=== PATIENT | female | born 1985 | race African-American/Black ===

== ENCOUNTER 2018-06-28 15:50 | Emergency (ER) | payer MEDICAID ==
[~2018-06-28] VITALS: Ht 167.6 cm; Wt 95.3 kg
[~2018-06-28 15:50] MED LIST: ALBUTEROL2.5 MG/3 M INH; PROMETHAZI6.25 MG/1 ORAL; VENTOLIN HFA18 GM INH
[2018-06-28] MEDS ORDERED: NKM (16:01)
--- NOTE | 2018-06-28 16:16 | NUR ---
ED Nurse Note: Pt walked in from home due to bilateral earache x 3-4 days, feel moist inside but no discharge. No complaint of ALONZO, dizziness. AOx4, VSS. Will cont to monitor.
[2018-06-28] MEDS ORDERED: Ketorolac 30mg Inj IV ONE (16:30)
--- NOTE | 2018-06-28 16:58 | Emergency Room Report ---
History of Present Illness General Chief Complaint: Earache Source: Patient Present Illness HPI 33-year-old female presents to the emergency department complaining of 8 out of 10 in severity pain to both sides of the face just in front of both ears 2 days. Patient denies fevers or chills. Pt. reports right side pain is more than the left. She denies fevers, chills, ST, or recent dental procedures. Allergies: Coded Allergies: No Known Allergies (Unverified , 01/07/18) Patient History Past Medical History: see triage record Past Surgical History: none Pertinent Family History: none Last Menstrual Period: 05/19/2018 Now: No Reviewed Nursing Documentation: PMH: Agreed; PSxH: Agreed Nursing Documentation-PMH Past Medical History: No History, Except For Hx Asthma: Yes Physical Exam Vital Signs Date Time Temp Pulse Resp B/P (MAP) Pulse Ox O2 Delivery O2 Flow Rate FiO2 06/28/18 15:58 98.6 92 14 155/83 95 Room Air Medical Decision Making PA Attestation Dr. Gonzalez is my supervising Physician whom patient management has been discussed with. Diagnostic Impression: Primary Impression: Trigeminal neuralgia pain Additional Impression: Temporomandibular joint (TMJ) pain Qualified Codes: M26.621 - Arthralgia of right temporomandibular joint ER Course Pt. presents to the ED c/O [ ] Ddx considered but are not limited to Tooth Avulsion, tooth fracture, maxilla or jaw fracture, lacerations, dental abscess, orbital cellulitis, d/l tooth, dental pain. Vital signs: are WNL, pt. is afebrile H&PE are most consistent with dental injury from trauma. ORDERS: none required at this time, the diagnosis is clinical ED INTERVENTIONS: None required at this time. DISCHARGE: At this time pt. is stable for d/c to home. Will provide printed patient care instructions, and any necessary prescriptions. Care plan and follow up instructions have been discussed with the patient prior to discharge. Last Vital Signs Date Time Temp Pulse Resp B/P (MAP) Pulse Ox O2 Delivery O2 Flow Rate FiO2 06/28/18 15:58 98.6 92 14 155/83 95 Room Air Disposition: HOME, SELF-CARE Condition: Stable Scripts Naproxen* (NAPROXEN*) 500 Mg Tablet 500 MG ORAL TWICE A DAY for 7 Days, #14 TAB Prov: Maria Luz Jones 06/28/18 Carbamazepine (CARBAMAZEPINE) 100 Mg Cpmp.12hr 100 MG ORAL TWICE A DAY for 7 Days, #14 CAP Prov: Maria Luz Jones 06/28/18 Patient Instructions: Trigeminal Neuralgia Additional Instructions: Take medications as directed. Follow up with a Dentist or [facility]-Facial Specialist in 3-5 days, even if your symptoms have resolved. --Please review list of Dental clinics, if you do not already have a Dentist Return sooner to ED if new symptoms occur, or current symptoms become worse. - Please note that this Emergency Department Report was dictated using [employer] agent technology software, occasionally this can lead to erroneous entry secondary to interpretation by the dictation equipment. Maria Luz Jones Jun 28, 2018 16:58
[2018-06-28] MEDS ORDERED: NAPROXEN500 M2 ORAL (17:00)
[2018-06-28] MEDS ORDERED: CARBAMAZEPINE100 M1 ORAL (17:00)
[2018-06-28 17:01] VITALS: BP 141/78
[2018-06-28 17:08] VITALS: BP 141/78
--- NOTE | 2018-06-28 17:08 | NUR ---
ED Nurse Note: Pt is clear to be discharged by ERMD. Discharge paper and prescription given, pt verbalized understanding of discharge instruction. AOx4, VSS. Wristband removed. Pt ambulated out with steady gait with all belongings.
== END 2018-06-28 17:00 | disposition home or self-care (01) ==
LOC: EMR 15:56
DX: G50.0 Trigeminal neuralgia (principal); M26.601 Right temporomandibular joint disorder, unspecified; J45.909 Unspecified asthma, uncomplicated
CPT/HCPCS: 96374; 99284; J1885

== ENCOUNTER 2018-11-05 11:13 | Emergency (ER) | payer MEDICAID ==
[~2018-11-05] VITALS: Ht 167.6 cm; Wt 97.5 kg
[~2018-11-05 11:13] MED LIST changes: +CARBAMAZEPINE100 M1 ORAL; +NAPROXEN500 M2 ORAL; +NKM
[2018-11-05 11:16] VITALS: BP 155/86
[2018-11-05] MEDS ORDERED: IBUPROFEN600 MG ORAL (11:56)
--- NOTE | 2018-11-05 11:57 | Diagnostic Imaging Report ---
INDICATION: Knee Pain COMPARISON: None 3 views of the left knee were obtained. FINDINGS: No acute fracture, malalignment, or joint effusion are identified. Joint space is relatively well-maintained. Impression: Negative for acute injury
--- NOTE | 2018-11-05 12:04 | NUR ---
ED Nurse Note: almost fell last monday but heard a popping sound on the L knee
--- NOTE | 2018-11-05 12:06 | NUR ---
ER DISCHARGE NOTE: Patient is cleared to be discharged per ERMD, pt is aox4, on room air, with stable vital signs. pt was given dc and prescription instructions, pt was able to verbalize understanding, pt id band REMOVED. pt is able to ambulate with steady gait. pt took all belongings.
--- NOTE | 2018-11-05 14:08 | Emergency Room Report ---
History of Present Illness General Chief Complaint: Lower Extremity Injury Source: Patient Present Illness HPI Patient presents with complaints of left knee pain Reports that she had an injury several days ago falling backwards she felt her knee buckled she has had increased pain since then the left side She is ambulatory reports that she took some pain medicine and was elevating it felt that the swelling in her leg had improved however the discomfort in the left knee continued also felt a popping sound initially with the initial injury Allergies: Coded Allergies: No Known Allergies (Unverified , 01/07/18) Patient History Past Medical History: see triage record Pertinent Family History: none Now: No Reviewed Nursing Documentation: PMH: Agreed; PSxH: Agreed Nursing Documentation-PMH Hx Asthma: Yes Review of Systems All Other Systems: negative except mentioned in HPI Physical Exam Vital Signs Date Time Temp Pulse Resp B/P (MAP) Pulse Ox O2 Delivery O2 Flow Rate FiO2 11/05/18 11:16 97.5 86 22 155/86 (109) 97 Room Air Sp02 EP Interpretation: reviewed, normal General Appearance: well appearing, no apparent distress Head: normocephalic, atraumatic Eyes: bilateral eye PERRL, bilateral eye EOMI ENT: normal pharynx Neck: supple Respiratory: no respiratory distress, no retraction Cardiovascular #1: regular rate, rhythm Musculoskeletal: other - Some discomfort palpable to the lower patellar area, negative anterior posterior drawer test no obvious effusion Neurologic: alert, oriented x3, responsive Skin: normal color, no rash Lymphatic: no adenopathy Medical Decision Making Diagnostic Impression: Primary Impression: knee pain ER Course Given the history exam and presentation multiple differential including but not limited to musculoskeletal, ligamental infectious pathology entertained, Given the traumatic nature patient had imaging obtained does not show any acute pathology I discussed with the patient that outpatient MRI will likely provide more significant input patient is stable for close follow-up Other X-Ray Diagnostic Results Other X-Ray Diagnostic Results : X-Ray ordered: Left knee # of Views/Limited Vs Complete: 3 View Indication: Pain EP Interpretation: Yes Interpretation: no dislocation, no soft tissue swelling, no fractures Impression: No acute disease Electronically Signed by: Ruiz Hsu DO Last Vital Signs Date Time Temp Pulse Resp B/P (MAP) Pulse Ox O2 Delivery O2 Flow Rate FiO2 11/05/18 12:05 98.0 72 24 132/85 100 Room Air Status: improved Disposition: HOME, SELF-CARE Condition: Improved Scripts Ibuprofen* (MOTRIN*) 600 Mg Tablet 600 MG ORAL Q8H PRN for For Pain, #20 TAB 0 Refills Prov: Ruiz Hsu DO 11/05/18 Referrals: NON PHYSICIAN (PCP) [facility] Departure Forms: Return to Work Return to Work in (Days): 1 Return to Work Date: Nov 06, 2018 Patient Instructions: Knee Pain, [id number] Additional Instructions: Patient is provided with the discharge instructions notified to follow up with primary doctor in the next 2-3 days otherwise return to the er with any worsening symptoms. Please note that this report is being documented using [employer] technology. This can lead to erroneous entry secondary to incorrect interpretation by the dictating instrument. Ruiz Hsu DO Nov 05, 2018 14:08
== END 2018-11-05 12:05 | disposition home or self-care (01) ==
LOC: EMR 11:25
DX: M25.562 Pain in left knee (principal)
CPT/HCPCS: 99283

== ENCOUNTER 2019-02-12 09:03 | Emergency (ER) | payer MEDICAID ==
[~2019-02-12] VITALS: Ht 167.6 cm; Wt 99.8 kg
[~2019-02-12 09:03] MED LIST changes: +IBUPROFEN600 MG ORAL
--- NOTE | 2019-02-12 09:10 | NUR ---
ED Nurse Note: pt presents to ED c/o right lymph node sweling, right ear and R throat pain for a couple days. Pt states that she felt relief after taking a hot shower and 600 mg of iburpofen MOLD INJECTOR. pt rates the pain before mediation 10/10 which decreased to 7/10 after taking the ibuprofen. 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
[2019-02-12 09:28] VITALS: BP 159/92
--- NOTE | 2019-02-12 09:28 | NUR ---
Note undone in EDM - 02/12/19 at 1047 by QLE ED Nurse Note: pt presents to ED c/o right lymph node sweling, right ear and R throat pain for a couple days. Pt states that she felt relief after taking a hot shower and 600 mg of iburpofen DATABASES SOFTWARE CONSULTANT. pt rates the pain before mediation 10/10 which decreased to 7/10 after taking the ibuprofen. 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
[2019-02-12] MEDS ORDERED: AMOXICILLIN875 MG PO (09:32)
[2019-02-12] MEDS ORDERED: IBUPROFEN600 MG ORAL (09:32)
[2019-02-12 09:35] VITALS: BP 147/97
--- NOTE | 2019-02-12 09:36 | Emergency Room Report ---
History of Present Illness General Chief Complaint: Sore Throat Source: Patient Present Illness HPI Disclaimer: Please note that this report is being documented using [employer] technology. This can lead to erroneous entry secondary to incorrect interpretation by the dictating instrument. HPI: 33-year-old female with a history of asthma presents for evaluation of right-sided ear and jaw pain. Symptoms began yesterday. She notes an aching in the right ear without changes in her hearing or tinnitus. She notes some swelling beneath the angle of the mandible on the right side which she believes is an inflamed lymph node. Notes a minor sore throat but denies any fevers, vomiting, chest pain, shortness of breath, cough, abdominal pain, diarrhea. Her niece gave her a dose of amoxicillin that she had prescribed for recent upper respiratory infection. She has been using Motrin intermittently at home without significant improvement. Pain is worse when she is chewing or speaking. Denies any prior history of ear infections or ear procedures. No recent swimming. PMH: Asthma PSH: Appendectomy Allergies: Denies Social Hx: Denies Allergies: Coded Allergies: No Known Allergies (Unverified , 01/07/18) Patient History Now: No Nursing Documentation-PMH Past Medical History: No History, Except For Hx Asthma: Yes Review of Systems All Other Systems: negative except mentioned in HPI Physical Exam Vital Signs Date Time Temp Pulse Resp B/P (MAP) Pulse Ox O2 Delivery O2 Flow Rate FiO2 02/12/19 09:06 98.1 76 16 159/92 (114) 98 Room Air General: Awake and alert, no acute distress HEENT: NC/AT. EOMI. left tympanic membrane is pearly french, nonbulging, nonerythematous, no effusion with clear landmarks. Right tympanic membrane is hyperemic with an effusion that appears somewhat purulent, minor bulging. Uvula is midline, tonsils are 1+. Mildly erythematous but no edema. Neck: Supple, trachea midline. No lymphadenopathy or tenderness appreciated Resp: Normal work of breathing Skin: Intact. No abrasions, laceration or rash over the exposed skin MSK: Normal tone and bulk. Moving all extremities. No obvious deformity. Neuro: Awake and alert. Mentating appropriately. Medical Decision Making Diagnostic Impression: Primary Impression: Otitis media, right ER Course Is a 33-year-old female presented for evaluation of right-sided ear and jaw pain for 1 day. It appears she has an acute otitis media in the right ear. We will treat with amoxicillin for 7 days and she can follow-up with her PMD. She had a overall well-appearing, nonseptic, stable vital signs and afebrile. We discussed reasons to return to the emergency department. She understands and agrees with this treatment plan. Last Vital Signs Date Time Temp Pulse Resp B/P (MAP) Pulse Ox O2 Delivery O2 Flow Rate FiO2 02/12/19 09:06 98.1 76 16 159/92 (114) 98 Room Air Disposition: HOME, SELF-CARE Condition: Stable Scripts Ibuprofen* (MOTRIN*) 600 Mg Tablet 600 MG ORAL Q8H PRN for For Pain, #30 TAB 0 Refills Prov: Jak Arzate MD 02/12/19 Amoxicillin (AMOXICILLIN) 875 Mg Tablet 875 MG PO Q12H for 7 Days, #14 TAB 0 Refills Prov: Jak Arzate MD 02/12/19 Referrals: [facility] Patient Instructions: Otitis Media, Adult Additional Instructions: You will be treated for a right sided middle ear infection with amoxicillin for 7 days. Please follow-up with your primary doctor in the next week for reevaluation. Return for high fevers, persistent vomiting, worsening sore throat, any changes in your hearing or failure to improve despite taking antibiotics. Continue using ibuprofen as needed for pain. You can add Tylenol as needed. Return to the emergency room with any new or worsening symptoms. Jak Arzate MD Feb 12, 2019 09:36
--- NOTE | 2019-02-12 09:38 | NUR ---
ED Nurse Note: nurse educated pt on risks of taking medications that were not prescribed to her and the importance of finishing abx medications as prescribed by Dr even if she is feeling better. pt understands and will take medications as presribed. she will f/u with PCP and return to ED for any concerns or worsening of symptoms. pt is stale and ambulatory, will be d/c home with prescriptions to be filled at preferred pharmacy.
== END 2019-02-12 09:35 | disposition home or self-care (01) ==
LOC: EMR 09:26
DX: H66.91 Otitis media, unspecified, right ear (principal); J45.909 Unspecified asthma, uncomplicated; Z90.49 Acquired absence of other specified parts of digestive tract
CPT/HCPCS: 99282

== ENCOUNTER 2019-04-04 02:37 | Emergency (ER) | payer MEDICAID ==
[~2019-04-04] VITALS: Ht 167.6 cm; Wt 93.0 kg
[~2019-04-04 02:37] MED LIST changes: +AMOXICILLIN875 MG PO
--- NOTE | 2019-04-04 02:55 | NUR ---
ED Nurse Note: [place] walked in to ER due to vaginal bleeding X4 months. States has non stop bleeding for 4 months. AAO x4, VSS at this time.
[2019-04-04 03:05] VITALS: BP 199/120
--- NOTE | 2019-04-04 03:30 | Emergency Room Report ---
History of Present Illness General Chief Complaint: Vaginal Source: Patient Present Illness HPI Disclaimer: Please note that this report is being documented using [employer] technology. This can lead to erroneous entry secondary to incorrect interpretation by the dictating instrument. HPI: 33-year-old G1, P0 female presents for evaluation of vaginal bleeding. Symptoms have been present for approximately 6 months. Initially, she was getting her menstrual period regularly but having prolonged episodes of bleeding lasting 1 to 2 weeks. Over the past 3 months however she is stated that while she still gets her typical periods she now has vaginal bleeding nearly every day. States she is going through approximately 5 pads daily. She has seen her PMD who is also her BARREL DRUM CUTTER several times and had thyroid function studies, hormone tests and other labs which all have come back within normal limits. No medications have been started yet or other interventions pursued. The patient is otherwise at her usual state of health aside from increasing fatigue over the past few weeks. She denies chest pain, palpitations, loss of consciousness, near syncope, fever, chills, cough, vomiting or diarrhea. Denies dysuria or hematuria. She does not take contraceptive medication. She had one many years ago which was electively terminated. She says she has a history of ovarian cyst but no history of endometriosis. There is family history of early menopause. PMH: Hypertension, not treated PSH: Appendectomy, Allergies: Denies Social Hx: Regular tobacco use, social alcohol use, denies drug use Allergies: Coded Allergies: No Known Allergies (Unverified , 01/07/18) Patient History Last Menstrual Period: 03/18/19 Now: No : 1 Para: 0 Nursing Documentation-PMH Hx Hypertension: Yes Hx Asthma: Yes Review of Systems All Other Systems: negative except mentioned in HPI Physical Exam Vital Signs Date Time Temp Pulse Resp B/P (MAP) Pulse Ox O2 Delivery O2 Flow Rate FiO2 04/04/19 02:48 97.9 81 18 199/120 (146) 96 Room Air General: Awake and alert, no acute distress HEENT: NC/AT. EOMI. Cardiovascular: RRR. S1 and S2 normal. No murmur appreciated Resp: Normal work of breathing. No cough, wheezing or crackles appreciated Abdomen: Abdomen is soft, nondistended. Nontender Skin: Intact. No abrasions, laceration or rash over the exposed skin MSK: Normal tone and bulk. Moving all extremities. No obvious deformity. Neuro: Awake and alert. Mentating appropriately. Medical Decision Making Diagnostic Impression: Primary Impression: Abnormal uterine bleeding ER Course 33-year-old female presents for evaluation of 6 months dysfunctional uterine bleeding. The patient arrives with stable vital signs are as complaints of intermittent weakness and fatigue. The patient has regular follow-up with her BARREL DRUM CUTTER who is also her PMD. We will screen for acute blood loss and symptom medic anemia at this time to make sure she does not require transfusion but otherwise she would likely be discharged to follow-up with her BARREL DRUM CUTTER for further management. Laboratory Tests Test 04/04/19 03:10 White Blood Count 8.2 K/UL (4.8-10.8) Red Blood Count 4.82 M/UL (4.20-5.40) Hemoglobin 13.0 G/DL (12.0-16.0) Hematocrit 39.5 % (37.0-47.0) Mean Corpuscular Volume 82 FL (80-99) Mean Corpuscular Hemoglobin 27.1 PG (27.0-31.0) Mean Corpuscular Hemoglobin Concent 33.0 G/DL (32.0-36.0) Red Cell Distribution Width 12.4 % (11.6-14.8) Platelet Count 462 K/UL (150-450) H Mean Platelet Volume 5.8 FL (6.5-10.1) L Neutrophils (%) (Auto) 49.1 % (45.0-75.0) Lymphocytes (%) (Auto) 43.5 % (20.0-45.0) Monocytes (%) (Auto) 5.4 % (1.0-10.0) Eosinophils (%) (Auto) 0.7 % (0.0-3.0) Basophils (%) (Auto) 1.3 % (0.0-2.0) Urine Color Yellow Urine Appearance Clear Urine pH 6 (4.5-8.0) Urine Specific [place] 1.020 (1.005-1.035) Urine Protein 1+ (NEGATIVE) H Urine Glucose (UA) Negative (NEGATIVE) Urine Ketones Negative (NEGATIVE) Urine Blood 5+ (NEGATIVE) H Urine Nitrite Negative (NEGATIVE) Urine Bilirubin Negative (NEGATIVE) Urine Urobilinogen Normal MG/DL (0.0-1.0) Urine Leukocyte Esterase 1+ (NEGATIVE) H Urine RBC 5-10 /HPF (0 - 2) H Urine WBC 2-4 /HPF (0 - 2) Urine Squamous Epithelial Cells Many /LPF (NONE/OCC) H Urine Bacteria Few /HPF (NONE) Urine HCG, Qualitative Negative (NEGATIVE) Sodium Level 137 MMOL/L (136-145) Potassium Level 3.4 MMOL/L (3.5-5.1) L Chloride Level 102 MMOL/L (98-107) Carbon Dioxide Level 33 MMOL/L (21-32) H Anion Gap 2 mmol/L (5-15) L Blood Urea Nitrogen 7 mg/dL (7-18) Creatinine 0.8 MG/DL (0.55-1.30) Estimate Glomerular Filtration Rate > 60 mL/min (>60) Glucose Level 100 MG/DL (74-106) Calcium Level 8.0 MG/DL (8.5-10.1) L Reevaluation Time: 04:15 Last Vital Signs Date Time Temp Pulse Resp B/P (MAP) Pulse Ox O2 Delivery O2 Flow Rate FiO2 04/04/19 02:48 97.9 81 18 199/120 (146) 96 Room Air Reevaluation Impression No evidence of anemia. Normal renal function, no urinary tract infection and hCG is negative. Patient does not require acute intervention at this time. Given her smoking status to start OCPs would put her at increased risk of blood clots and therefore she needs to follow-up closely with her PMD/BARREL DRUM CUTTER to pick the right medication combination. She should be reevaluated by her BARREL DRUM CUTTER within the next few days to determine appropriate treatment path. She will be discharged from the emergency department outpatient follow-up. Discussed reasons to return to the emergency department. She understands and agrees with this treatment plan. Disposition: HOME, SELF-CARE Condition: Stable Referrals: NON PHYSICIAN (PCP) Jak Arzate MD Apr 04, 2019 03:30
[2019-04-04 03:36] LABS: APPEARANCE,URINE CLEAR; BASOPHILS % (AUTO) 1.3 % (0.0-2.0); BILIRUBIN, URINE NEGATIVE (NEGATIVE); EOSINOPHILS % (AUTO) 0.7 % (0.0-3.0); GLUCOSE, URINE (UA) NEGATIVE (NEGATIVE); HEMATOCRIT 39.5 % (37.0-47.0); KETONES,URINE NEGATIVE (NEGATIVE); LEUKOCYTE ESTERASE ,URINE 1+ (NEGATIVE); LYMPHOCYTES % (AUTO) 43.5 % (20.0-45.0); MEAN CORPUSCULAR VOLUME 82 FL (80-99); MONOCYTES % (AUTO) 5.4 % (1.0-10.0); NEUTROPHILS % (AUTO) 49.1 % (45.0-75.0); NITRITE,URINE NEGATIVE (NEGATIVE); PH,URINE 6 (4.5-8.0); PLATELET COUNT 462 K/UL (150-450); PROTEIN,URINE 1+ (NEGATIVE); RED BLOOD COUNT 4.82 M/UL (4.20-5.40); RED CELL DISTRIBUTION WIDTH 12.4 % (11.6-14.8); UROBILINOGEN,URINE NORMAL MG/DL (0.0-1.0); WHITE BLOOD COUNT 8.2 K/UL (4.8-10.8)
[2019-04-04 03:44] LABS: ANION GAP 2 mmol/L (5-15); BLOOD UREA NITROGEN 7 mg/dL (7-18); CARBON DIOXIDE 33 MMOL/L (21-32); CHLORIDE 102 MMOL/L (98-107); CREATININE 0.8 MG/DL (0.55-1.30); POTASSIUM 3.4 MMOL/L (3.5-5.1); SODIUM 137 MMOL/L (136-145)
[2019-04-04 03:50] LABS: COLOR,URINE YELLOW
--- NOTE | 2019-04-04 04:20 | NUR ---
ER DISCHARGE NOTE: Patient is cleared to be discharged per ERMD, pt is aox4, on room air, with stable vital signs. pt was given dc and prescription instructions, pt was able to verbalize understanding, pt id band and iv site removed without complications. pt is able to ambulate with steady gait. pt took all belongings.
== END 2019-04-04 04:54 | disposition home or self-care (01) ==
LOC: EMR 03:09
DX: N93.9 Abnormal uterine and vaginal bleeding, unspecified (principal); I10 Essential (primary) hypertension; J45.909 Unspecified asthma, uncomplicated
CPT/HCPCS: 36415; 80048; 81003; 81025; 85025; Z7502; 99283

== ENCOUNTER 2019-06-17 11:30 | Emergency (ER) | payer MEDICAID ==
[~2019-06-17] VITALS: Ht 167.6 cm; Wt 90.7 kg
[2019-06-17 11:40] VITALS: BP 156/89
[2019-06-17] MEDS ORDERED: IBUPROFEN600 MG ORAL (12:12)
[2019-06-17] MEDS ORDERED: ZITHROMAX250 MG ORAL (12:12)
--- NOTE | 2019-06-17 12:16 | NUR ---
ED Nurse Note: Patient presents to ER due to sore throat x 1 day; increased pain with eating/drinking water, but able to swallow food and drinking water. Regular, unlabored breathing noted. Reports no fever, chills or N/V/D.
--- NOTE | 2019-06-17 12:21 | Emergency Room Report ---
History of Present Illness General Chief Complaint: Sore Throat Source: Patient, Significant Other Present Illness HPI Patient is a 34-year-old female past medical history of asthma who presents to the ER complaining of throat pain for 2 days. Patient complains of painful swallowing and swollen lymph node to her right side. She denies any fever or chills. She denies any cough. She denies any drooling or changes in voice. She denies any rash or neck stiffness. She denies any altered mental status. She denies any sick contacts or recent travel. Denies any wheezing. Allergies: Coded Allergies: No Known Allergies (Unverified , 01/07/18) Patient History Last Menstrual Period: 05/24/2019 Now: No Reviewed Nursing Documentation: PMH: Agreed; PSxH: Agreed Nursing Documentation-PMH Past Medical History: No History, Except For Hx Hypertension: Yes Hx Asthma: Yes Review of Systems All Other Systems: negative except mentioned in HPI Physical Exam Vital Signs Date Time Temp Pulse Resp B/P (MAP) Pulse Ox O2 Delivery O2 Flow Rate FiO2 06/17/19 11:40 97.9 19 156/89 95 Room Air 06/17/19 11:40 76 Sp02 EP Interpretation: reviewed, normal General Appearance: no apparent distress, alert, GCS 15, non-toxic Head: normocephalic, atraumatic Eyes: bilateral eye normal inspection, bilateral eye PERRL ENT: hearing grossly normal, no angioedema, normal voice, uvula midline, moist mucus membranes, tonsillar swelling, other - Tonsillar swelling right greater than left with exudate no peritonsillar cellulitis or abscess. Neck: full range of motion, no meningismus, other - Tender cervical lymphadenopathy. Respiratory: normal inspection, chest non-tender, lungs clear, no respiratory distress Cardiovascular #1: regular rate, rhythm, no edema Gastrointestinal: normal bowel sounds, non tender, soft, non-distended, no guarding, no rebound Genitourinary: normal inspection, no CVA tenderness Musculoskeletal: back normal, normal range of motion, calf tenderness, gait/ station normal, non-tender Neurologic: alert, motor strength/tone normal, oriented x3, sensory intact, responsive, speech normal Psychiatric: judgement/insight normal, memory normal, mood/affect normal, no suicidal/homicidal ideation Skin: no rash Medical Decision Making Diagnostic Impression: Primary Impression: pharyngitis ER Course Patient in no acute distress. No peritonsillar abscess. No drooling or changes in voice. She is tolerating p.o. Given prescription for Z-[place] and Motrin for presumed strep pharyngitis. After discussing risks and benefits of further diagnostics, treatment plans, as well as indications for and risks of admission, the patient is agreeable to being discharged home. I have explained that their evaluation and treatment in the emergency department today is an important step towards them achieving better health but that their evaluation today is not intended to replace further evaluation and treatment by a physician in their local clinic. I have explained that while the current findings suggest no immediate life threatening emergency they will require further evaluation and treatment by a physician of their choice in their area. They understand that it will be necessary for them to review the final reports of their ED visit with their clinic physician. We have reviewed indications for return to the Emergency Department. I have explained that additional time may need to pass and/or additional testing as an outpatient may be necessary before a definitive diagnosis can be made. They tell me they are willing to follow up as instructed within the timeframe I recommend. They appear to understand what we discussed. Additionally they understand that if they are unable to be seen by an outpatient physician they are welcome, and in fact should, return to the Emergency Department for a repeat evaluation. The patient is stable at time of discharge. Last Vital Signs Date Time Temp Pulse Resp B/P (MAP) Pulse Ox O2 Delivery O2 Flow Rate FiO2 06/17/19 11:40 97.9 76 19 156/89 (111) 95 Room Air Status: unchanged Disposition: HOME, SELF-CARE Condition: Stable Scripts Ibuprofen* (MOTRIN*) 600 Mg Tablet 600 MG ORAL Q8H PRN for For Pain, #30 TAB 0 Refills Prov: Bonita Choe M.D. 06/17/19 Azithromycin* (ZITHROMAX*) 250 Mg Tablet 250 MG ORAL DAILY, #6 TAB 0 Refills Take two tables once daily for 1 day, then one tablet once daily for 4 days. Prov: Bonita Choe M.D. 06/17/19 Referrals: [facility] K[facility] Martines [facility] Departure Forms: Return to Work Return to Work in (Days): 2 Return to Work Date: Jun 19, 2019 Patient Instructions: Pharyngitis, Pharyngitis, [id number] Additional Instructions: After discussing risks and benefits of further diagnostics, treatment plans, as well as indications for and risks of admission, the patient is agreeable to being discharged home. I have explained that their evaluation and treatment in the emergency department today is an important step towards them achieving better health but that their evaluation today is not intended to replace further evaluation and treatment by a physician in their local clinic. I have explained that while the current findings suggest no immediate life threatening emergency they will require further evaluation and treatment by a physician of their choice in their area. They understand that it will be necessary for them to review the final reports of their ED visit with their clinic physician. We have reviewed indications for return to the Emergency Department. I have explained that additional time may need to pass and/or additional testing as an outpatient may be necessary before a definitive diagnosis can be made. They tell me they are willing to follow up as instructed within the timeframe I recommend. They appear to understand what we discussed. Additionally they understand that if they are unable to be seen by an outpatient physician they are welcome, and in fact should, return to the Emergency Department for a repeat evaluation. The patient is stable at time of discharge. Bonita Choe M.D. Jun 17, 2019 12:21
--- NOTE | 2019-06-17 12:41 | NUR ---
ED Nurse Note: Patient is being discharged from medical care. D/C instruction and prescription given to patient. All questions were answered. Patient ambulating out with steady gait.
== END 2019-06-17 12:42 | disposition home or self-care (01) ==
LOC: EMR 12:25
DX: J02.9 Acute pharyngitis, unspecified (principal); I10 Essential (primary) hypertension; J45.909 Unspecified asthma, uncomplicated
CPT/HCPCS: 99282

== ENCOUNTER 2019-06-30 19:40 | Emergency (ER) | payer MEDICAID ==
[~2019-06-30] VITALS: Ht 167.6 cm; Wt 99.8 kg
[~2019-06-30 19:40] MED LIST changes: +ZITHROMAX250 MG ORAL
--- NOTE | 2019-06-30 21:22 | NUR ---
ED Nurse Note: Pt wheelchair assist to ED c/o right knee dislocation x 1800. As per pt, she missed a step on the stair and fell. Denies LOC or injury to head. Pt reports sensation distal to injury.
--- NOTE | 2019-06-30 21:44 | NUR ---
ED Nurse Note: Xray at bedside.
[2019-06-30] MEDS ORDERED: HYDROcodone/Acetamin 5/325 tab ORAL ONE (22:30)
[2019-06-30] MEDS ORDERED: IBUPROFEN600 MG ORAL (22:38)
[2019-06-30] MEDS ORDERED: NORCO 5-325 TA1 EACH ORAL (22:38)
[2019-06-30 22:44] VITALS: BP 153/83
--- NOTE | 2019-06-30 22:44 | NUR ---
ED Nurse Note: Pt cleared by ERMD for discharge. DC instructions/prescription was given and explained to pt and verbalized understanding of teachings. All medical deviecs such as ID band removed. Pt is AAO x4, ambulatory and left with all personal belongings. Crutches provided. Pt left with S/O.
--- NOTE | 2019-07-01 02:22 | Emergency Room Report ---
History of Present Illness General Chief Complaint: Lower Extremity Injury Source: Patient Present Illness HPI 34-year-old female presents ED for evaluation. Complaining of right knee pain status post fall tonight. States that she missed a step while going down the stairs. Believes her knee is dislocated. Pain is throbbing, 10 out of 10, nonradiating. Unable to bear weight. Denies any other injuries. No other aggravating relieving factors. Denies any other associated symptoms Allergies: Coded Allergies: No Known Allergies (Unverified , 01/07/18) Patient History Past Medical History: HTN, asthma Past Surgical History: none Pertinent Family History: none Social History: Denies: smoking, alcohol use, drug use Last Menstrual Period: 06/22/19 Now: No Immunizations: UTD Reviewed Nursing Documentation: PMH: Agreed; PSxH: Agreed Nursing Documentation-PMH Past Medical History: No History, Except For Hx Hypertension: Yes Hx Asthma: Yes Review of Systems All Other Systems: negative except mentioned in HPI Physical Exam Vital Signs Date Time Temp Pulse Resp B/P (MAP) Pulse Ox O2 Delivery O2 Flow Rate FiO2 06/30/19 21:17 98.2 106 18 153/83 (106) 96 Room Air Sp02 EP Interpretation: reviewed, normal General Appearance: alert, GCS 15, non-toxic, mild distress Head: normocephalic Eyes: bilateral eye normal inspection, bilateral eye PERRL ENT: normal ENT inspection Neck: normal inspection Respiratory: normal inspection Cardiovascular #1: normal inspection Cardiovascular #2: 2+ dorsalis pedis (R) Gastrointestinal: normal inspection Rectal: deferred Genitourinary: no CVA tenderness Musculoskeletal: decreased range of motion, tender - R knee. patella not in place Neurologic: alert, motor strength/tone normal, oriented x3, sensory intact, responsive, speech normal Psychiatric: normal inspection Skin: no rash Lymphatic: normal inspection Procedures Splinting Splinting : Consent: Verbal Pre-Made Type: knee immobilizer Pre-Proc Neuro Vasc Exam: normal Post-Proc Neuro Vasc Exam: normal Patient Tolerated: Well Complications: None Medical Decision Making Diagnostic Impression: Primary Impression: Patellar tendon rupture Qualified Codes: S86.811A - Strain of other muscle(s) and tendon(s) at lower leg level, right leg, initial encounter ER Course Hospital Course 34-year-old F presents to ED complaining of R knee pain s/p trip and fall Differential diagnoses include: Fracture, dislocation, sprain, contusion Clinical course Patient placed on stretcher. After initial history and physical, I ordered pain medications and Xrays of R knee Xrays prelim read shows no acute fracture/dislocation. However there is a high riding patella. Consistent with a patellar tendon rupture. I discussed findings with patient. Placed in knee immobilizer. Given crutches. Has good distal pulses. Patient will likely require operative fixation. I will provide orthopedic referrals. Safe for discharge for close outpatient follow-up Diagnosis - patellar tendon rupture Stable and discharged to home with prescription for Motrin, Bivins. apply ice, keep elevated. nonweight bearing. Followup with PMD/ortho. Return to ED if symptoms recur or worsen Other X-Ray Diagnostic Results Other X-Ray Diagnostic Results : X-Ray ordered: R knee # of Views/Limited Vs Complete: 3 View Indication: Pain EP Interpretation: Yes Interpretation: no soft tissue swelling, no fractures, other - high riding patella Impression: Other - patellar tendon rupture Electronically Signed by: Electronically signed by Aldo Rivera MD Last Vital Signs Date Time Temp Pulse Resp B/P (MAP) Pulse Ox O2 Delivery O2 Flow Rate FiO2 06/30/19 22:44 98.2 18 153/83 96 Room Air 06/30/19 21:17 106 Status: improved Disposition: HOME, SELF-CARE Condition: Stable Scripts Hydrocodone Bit/Acetaminophen 5-325* (NORCO 5-325*) 1 Each Tablet 1 TAB ORAL Q6H PRN for For Pain, #10 TAB 0 Refills Prov: Aldo Rivera MD 06/30/19 Ibuprofen* (MOTRIN*) 600 Mg Tablet 600 MG ORAL Q8H PRN for For Pain, #30 TAB 0 Refills Prov: Aldo Rivera MD 06/30/19 Referrals: NON PHYSICIAN (PCP) [facility] 24 hour /7 days a week by Appointment Only [address] [facility] [id number] Patient Instructions: Patellar Tendon Tear or Disruption With Rehab[facility] Aldo Rivera MD Jul 01, 2019 02:22
--- NOTE | 2019-07-01 10:31 | Diagnostic Imaging Report ---
Indication: Right knee pain Technique: 3 views of the knee Comparison: None Findings: There is marked cephalad subluxation of the patella. There is apparent irregularity of the patellar tendon. There is an osseous fragment projected anterior to the proximal tibia, but this appears corticated and no definite tibial defect is demonstrated. Small scattered soft tissue calcifications probably represent phleboliths. No acute fractures. The joint spaces are preserved Impression:. Cephalad subluxation of the patella. This raises concern for patellar tendon injury. Correlate with clinical findings, consider MRI for further evaluation This agrees with the preliminary interpretation provided by the emergency room physician
== END 2019-06-30 22:44 | disposition home or self-care (01) ==
LOC: EMR 21:15
DX: S86.811A Strain of other muscle(s) and tendon(s) at lower leg level, right leg, initial encounter (principal); W10.9XXA Fall (on) (from) unspecified stairs and steps, initial encounter; Y92.9 Unspecified place or not applicable; I10 Essential (primary) hypertension
CPT/HCPCS: 29505; 73562; Z7502; 99283

== ENCOUNTER 2020-03-09 19:09 | Emergency (ER) | payer MEDICAID ==
[~2020-03-09] VITALS: Ht 167.6 cm; Wt 86.2 kg
[~2020-03-09 19:09] MED LIST changes: +NORCO 5-325 TA1 EACH ORAL
[2020-03-09 19:25] VITALS: BP 143/97
--- NOTE | 2020-03-09 19:26 | NUR ---
ED Nurse Note: Pt walked in c/o nasal congestion since 03/06. Pt stated she has seasonal allergies. Pt denies chest pain, cough, sore throat. Pt stated she took benydrl and clartin. vss, nad, aaox4, ambulatory, ermd at bedside
[2020-03-09 19:30] VITALS: BP 143/97
--- NOTE | 2020-03-09 19:30 | Emergency Room Report ---
History of Present Illness General Chief Complaint: Upper Respiratory Illness Source: Patient Present Illness HPI Disclaimer: Please note that this report is being documented using DRAGON technology. This can lead to erroneous entry secondary to incorrect interpretation by the dictating instrument. HPI: 34-year-old female presents requesting a note to return to work. Patient states over the past 3 days due to the change in season she has had increased nasal congestion and fullness in her ears. She states she has been treating herself with Benadryl and Claritin for seasonal allergies over the past 2 days. She mentioned this to a coworker and that her boss said she needed medical evaluation before returning to work due to the COVID-19 pandemic. Denies loss of taste or smell. The patient denies any recent fever, chills, postnasal drip, sore throat, shortness of breath, cough, sweats, nausea, vomiting, diarrhea or other changes in her health. Her nasal congestion and ear fullness have improved after taking Benadryl and Claritin. No other symptoms reported at this time. No recent sick contacts. No recent travel. PMH: Asthma PSH: Reviewed Allergies: Denied Social Hx: Denied Allergies: Coded Allergies: No Known Allergies (Unverified , 01/07/18) COVID-19 Screening Contact w/high risk pt: No Experienced COVID-19 symptoms?: No COVID-19 Testing performed WAX PUMPER: No Patient History Last Menstrual Period: current Nursing Documentation-PMH Hx Hypertension: Yes Hx Asthma: Yes - bronchitis Review of Systems All Other Systems: negative except mentioned in HPI Physical Exam Vital Signs Date Time Temp Pulse Resp B/P (MAP) Pulse Ox O2 Delivery O2 Flow Rate FiO2 03/09/20 19:15 98.8 16 162/102 (122) 99 Room Air 03/09/20 19:25 78 99 General: Awake and alert, no acute distress HEENT: NC/AT. EOMI. PERRLA. Uvula midline. Tonsils 2+ nonobstructing without edema, erythema or purulence. No submandibular lymphadenopathy. Tympanic membranes are slightly occluded by cerumen bilaterally though no overt signs of infection. Resp: Normal work of breathing. No wheezing, no cough, no crackles Skin: Intact. No abrasions, laceration or rash over the exposed skin MSK: Normal tone and bulk. Moving all extremities. No obvious deformity. Neuro: Awake and alert. Mentating appropriately Medical Decision Making Diagnostic Impression: Primary Impression: Seasonal allergies ER Course 34-year-old female presenting for evaluation for medical clearance prior to returning to work. I find no concerning signs or symptoms to suggest systemic infection or emergent need for labs or imaging in the emergency department at this time. The patient states this is her typical seasonal allergy presentation and given the changing of the season over the past few days this is reasonable. I advised her to follow-up on outpatient testing for COVID-19 should her work required but she does not require emergent testing in the ED at this time and we are unable to perform community testing due to limited supply. She understands and agrees with this plan. Will follow-up on an outpatient basis. Last Vital Signs Date Time Temp Pulse Resp B/P (MAP) Pulse Ox O2 Delivery O2 Flow Rate FiO2 03/09/20 19:25 98.7 78 16 143/97 99 Room Air 03/09/20 19:25 99 Disposition: HOME, SELF-CARE Condition: Stable Departure Forms: Return to Work Return to Work Date: Mar 09, 2020 Patient Instructions: Allergies Additional Instructions: Please follow-up with your primary care doctor in the next 1 to 3 days to discuss this emergency department visit and for reevaluation. If you have any new or worsening symptoms please return to the emergency department for reevaluation. Please note that this report is being documented using Orgdot technology. This can lead to erroneous entry secondary to incorrect interpretation by the dictating instrument. Jak Arzate MD Mar 09, 2020 19:30
--- NOTE | 2020-03-09 19:30 | NUR ---
ER DISCHARGE NOTE: Patient is cleared to be discharged per ERMD, pt is aox4, on room air, with stable vital signs. pt was given dc instructions, pt was able to verbalize understanding, pt id band removed without complications. pt is able to ambulate with steady gait. pt took all belongings.
== END 2020-03-09 19:30 | disposition home or self-care (01) ==
LOC: EMR 19:25
DX: J30.2 Other seasonal allergic rhinitis (principal); I10 Essential (primary) hypertension
CPT/HCPCS: 99281